=== PATIENT | female | born 1980 | race Caucasian/White ===

== ENCOUNTER → 2016-11-22 | Outpatient (CLI) | payer OTHER ==
[~2016-11-22] MED LIST: PRENTAB26 PO
== END | disposition home or self-care (01) ==
LOC: C.PATHSPEC 10:44
PROVIDERS: ATTEND Plastic Surgery
DX: D23.61 Other benign neoplasm of skin of right upper limb, including shoulder (principal)

== ENCOUNTER → 2016-11-26 | Outpatient (CLI) | payer OTHER | END | disposition home or self-care (01) | LOC: C.LABSPEC 10:39 | PROVIDERS: ATTEND Nurse Practitioner Family | DX: J02.9 Acute pharyngitis, unspecified (principal) ==

== ENCOUNTER → 2017-03-31 | Outpatient (CLI) | payer OTHER | END | disposition home or self-care (01) | LOC: C.PAPS 11:27 | PROVIDERS: ATTEND Obstetrics & Gynecology | DX: Z12.4 Encounter for screening for malignant neoplasm of cervix (principal); Z11.51 Encounter for screening for human papillomavirus (HPV) ==

== ENCOUNTER → 2017-06-29 | Outpatient (CLI) | payer OTHER ==
[2017-06-29 09:35] LABS: BASO % 0.4 %; BASO ABS # 0.02 K/uL (0-0.2); COMPLETE YES; EOS % 0.9 %; HEMATOCRIT 42.8 % (37-47); LYMPH % 39.2 %; LYMPH ABS # 2.12 K/uL (1.2-3.4); MEAN CELL VOLUME 88.8 fL (80-100); MEAN CORPUSCULAR HEMOGLOBIN 30.1 pg (25-34); MEAN CORPUSCULAR HGB CONC 33.9 g/dl (32-36); MEAN PLATELET VOLUME 10.4 fL (7.4-10.4); MONO % 9.1 %; NEUT % 50.4 %; PLATELET COUNT 238 K/uL (130-400); RED BLOOD COUNT 4.82 M/uL (4.2-5.4); WHITE BLOOD COUNT 5.41 K/uL (4.8-10.8)
[2017-06-29 09:58] LABS: ALT/SGPT 23 U/L (12-78); AST/SGOT 14 U/L (15-37); BLOOD UREA NITROGEN 13 mg/dl (7-18); BUN/CREATININE RATIO 17.2 (10-20); CALCIUM 8.8 mg/dl (8.5-10.1); CARBON DIOXIDE 26 mmol/L (21-32); CHLORIDE 107 mmol/L (98-107); CHOLESTEROL 225 mg/dl (0-200); CREATININE 0.78 mg/dl (0.60-1.20); GLUCOSE 93 mg/dl (70-99); SODIUM 139 mmol/L (136-145); TRIGLYCERIDES 181 mg/dl (0-150); VERY LOW DENSITY LIPOPROT CALC 36 mg/dl
[2017-06-29 10:08] LABS: ALB/GLOB RATIO 1.1 (0.9-2); ALKALINE PHOSPHATASE 69 U/L (45-117); CHOLESTEROL/HDL RATIO 4.6; HDL CHOLESTEROL 49 mg/dl; LDL CHOLESTEROL CALCULATED 140 mg/dl; THYROID STIMULATING HORMONE 0.486 uIu/ml (0.300-4.500)
== END | disposition home or self-care (01) ==
LOC: C.LAB 07:27
PROVIDERS: ATTEND Nurse Practitioner Adult Health
DX: Z00.00 Encounter for general adult medical examination without abnormal findings (principal); Z13.220 Encounter for screening for lipoid disorders; E04.9 Nontoxic goiter, unspecified

== ENCOUNTER → 2017-07-01 | Outpatient (CLI) | payer OTHER ==
--- NOTE | 2017-07-01 14:59 | DIAGNOSTIC IMAGING REPORT ---
THYROID ULTRASOUND HISTORY: E04.9 Enlarged thyroid [id number] COMPARISON: None. FINDINGS: Right lobe: 4.9 x 1.2 x 1.1 cm. There are few tiny scattered hypoechoic nodules/cysts cysts measuring up to 3 mm. There is also a single hypoechoic 7 x 4 x 6 mm nodule within the interpolar region. No associated calcifications. Therefore, this does not meet sonographic criteria for biopsy at this time. Left lobe: 5.2 x 1.8 x 1.5 cm. Dominant solid and cystic nodule within the lower pole which measures 3.2 x 2.0 x 1.4 cm. This contains multiple punctate densities which may represent microcalcifications versus colloid. Isthmus: 2 mm in thickness. No nodules. IMPRESSION: Dominant 3.2 x 2.0 x 1.4 cm nodule within the left thyroid lobe. Recommend follow-up ultrasound guided fine-needle aspiration for further evaluation. Electronically signed by: Segundo Blum M.D. 07/01/2017 2:58 PM Dictated Date/Time: 07/01/2017 2:49 PM
== END | disposition home or self-care (01) ==
LOC: C.ULTR 11:43
PROVIDERS: ATTEND Nurse Practitioner Adult Health
DX: E04.9 Nontoxic goiter, unspecified (principal)

== ENCOUNTER → 2017-07-22 | Outpatient (CLI) | payer OTHER ==
--- NOTE | 2017-07-22 14:01 | DIAGNOSTIC IMAGING REPORT ---
ULTRASOUND-GUIDED FINE-NEEDLE ASPIRATION BIOPSY OF A LEFT LOBE THYROID NODULE CLINICAL HISTORY: LEFT THYROID NODULE COMPARISON STUDY: 07/01/2017 FINDINGS: A timeout was performed. The risks the procedure were explained the patient informed consent was obtained. Patient prepped in sterile fashion. The skin was anesthetized 1% lidocaine. Under ultrasound guidance, 2 samples of the dominant left lobe nodule were performed utilizing a 25-gauge needle. Initial pathologic review indicates satisfactory material for diagnosis. There were no immediate combinations. IMPRESSION: Successful ultrasound-guided fine-needle aspiration biopsy of a dominant left lobe thyroid nodule. Electronically signed by: Tejas Woodward M.D. 07/22/2017 2:00 PM Dictated Date/Time: 07/22/2017 1:57 PM
== END | disposition home or self-care (01) ==
LOC: C.ULTR 12:46
PROVIDERS: ATTEND Nurse Practitioner Adult Health
DX: E04.1 Nontoxic single thyroid nodule (principal)

== ENCOUNTER 2017-09-20 10:09 | Emergency (ER) | payer OTHER ==
[~2017-09-20] VITALS: Ht 162.6 cm; Wt 81.6 kg
[2017-09-20 10:10] VITALS: TEMP 36.8; Ht 162.6 cm; Wt 81.6 kg
[2017-09-20] MEDS ORDERED: IBUPROFEN 600 MG TAB PO STA (10:24)
--- NOTE | 2017-09-20 10:43 | DIAGNOSTIC IMAGING REPORT ---
LEFT HAND 3 VIEWS CLINICAL HISTORY: Left hand pain. FINDINGS: 3 views of the left hand are obtained. No prior studies are available for comparison at the time of dictation. The skeletal structures are well mineralized. No fracture is seen. The joint spaces of the hand are well-maintained. The overlying soft tissues are within normal limits. IMPRESSION: No acute bony abnormality is seen in the left hand. Electronically signed by: Aurelio Tubbs M.D. 09/20/2017 10:42 AM Dictated Date/Time: 09/20/2017 10:40 AM
[2017-09-20 11:45] VITALS: BP 149/103; PULSE 89; O2SAT 97
--- NOTE | 2017-09-20 15:44 | EMERGENCY ROOM VISIT NOTE ---
ED Visit Note First contact with patient: 10:14 Chief Complaint: Left hand pain. History of Present Illness: Ms. Gomez is a 37-year-old white female who ambulates into the ED complaining of left hand pain over the second MCP joint of the left hand. Patient reports she was attempting to do a balance beam exercise last evening and fell to the floor onto her left hand. She does not remember the specific mechanism of injury. Since the fall she has been having pain over the second MCP joint. She describes her pain as a combination of sharp and pressure. She rates her discomfort 5/10. Her pain is nonradiating. Her pain worsens with flexion and extension of the MPC joint and palpation of the MCP joint. She has not identified any alleviating factors related to the pain. She reports she took ibuprofen last evening with mild relief of her discomfort. She denies any other associated hand pain, finger pain, wrist pain, forearm pain. She also denies any previous significant injuries or surgeries to the hand. Review of Systems: As noted above in history of present illness. 5 body systems were reviewed and found to be negative as noted above. Past Medical History: Status post a adenoidectomy and wisdom teeth extraction. Current Medications: Patient denies. Allergies to Medications: Patient denies. Social History: Patient is currently employed; she feels safe in her home environment; she denies tobacco and alcohol use. Physical Examination: Vital Signs: Date Time Temp Pulse Resp B/P (MAP) Pulse Ox O2 Delivery O2 Flow Rate FiO2 09/20/17 11:45 89 18 149/103 97 Room Air 09/20/17 10:10 36.8 101 18 170/115 98 Room Air GENERAL: 37-year-old female in mild distress due to pain, nontoxic-appearing, afebrile and hemodynamically stable. NEUROLOGICAL: Awake, alert and oriented to person, place and time. Answering questions appropriately and following commands. SKIN: Warm, dry and pink. No soft tissue trauma noted. LEFT HAND: No gross bony deformity. No tenderness throughout the wrist. Mild tenderness over the second MCP joint with mild swelling but no bony deformity or crepitus. Mild decreased range of motion in flexion of the finger but does have full extension. Throughout the finger the skin was warm and pink and capillary refill was brisk. She was able to distinguish light sensations to all dermatomes. ED Course: Patient is assessed as noted above. Patient's medication list was reviewed. Patient was given 600 mg of ibuprofen by mouth for pain. Left Hand X-Rays: Were read by myself and the radiologist showing no acute fractures or dislocations. Patient's left index finger was placed in a long metal finger splint to immobilize the DIP, PIP and MCP joint. Patient was discharged home in stable condition; prior to departure she was reassessed and subjectively reported she was feeling slightly better and rated her discomfort 4/10. Clinical Impression: Left hand pain. Disposition: Patient discharged home in stable condition; prior to departure she was reassessed and subjectively reported she was feeling slightly better. Plan: Comfort measures were discussed with the patient including rest, ice, splint use and alternating ibuprofen and acetaminophen as needed for pain. Patient was encouraged to follow-up with her PCP for recheck if no better in 7- 10 days for possible referral to orthopedics. Patient was encouraged to return the ED for worsening/uncontrolled pain, uncontrolled swelling, finger weakness/numbness/tingling or any new/concerning symptoms.
== END 2017-09-20 11:53 | disposition home or self-care (01) ==
LOC: C.EDB 10:10
DX: M79.645 Pain in left finger(s) (principal)